=== PATIENT | male | born 1990 | race Caucasian/White ===

== ENCOUNTER 2023-06-26 20:17 | Emergency (ER) | payer OTHER ==
[~2023-06-26] VITALS: Ht 188 cm; Wt 108.9 kg
[2023-06-26 20:35] VITALS: BP 124/69; PULSE 79; RESP 17; TEMP 98.2; O2SAT 97
[2023-06-26 20:40] VITALS: BP 124/69; PULSE 79; RESP 17; TEMP 98.2; O2SAT 97
[2023-06-26 23:01] LABS: FLU A ANTIGEN negative (NEGATIVE); FLU B ANTIGEN NEGATIVE (NEGATIVE)
[2023-06-27] MEDS ORDERED: KETOROLAC 60 MG/2 ML VIAL IM ONE (02:00)
[2023-06-27] MEDS ORDERED: PRED20TA5 PO (02:33)
[2023-06-27] MEDS ORDERED: IBUP-2213 PO (02:33)
== END 2023-06-27 02:42 | disposition home or self-care (01) ==
LOC: MED 20:17
DX: J02.9 Acute pharyngitis, unspecified (principal); R05.9 Cough, unspecified; R50.9 Fever, unspecified; Z20.822 Contact with and (suspected) exposure to COVID-19
CPT/HCPCS: 87426; 87804; 96372; 99283; J1885

== ENCOUNTER 2023-08-06 12:53 | Emergency (ER) | payer OTHER ==
[~2023-08-06] VITALS: Ht 190.5 cm; Wt 90.7 kg
[~2023-08-06 12:53] MED LIST: IBUP-2213 PO; PRED20TA5 PO
[2023-08-06 13:05] VITALS: BP 139/72; PULSE 79; RESP 18; TEMP 97; O2SAT 98
[2023-08-06] MEDS ORDERED: HYDROcodone/APAP 10/325 MG 1 TAB TAB PO STA (13:57)
[2023-08-06] MEDS ORDERED: KETOROLAC 60 MG/2 ML VIAL IM ONE ×2 (14:00)
[2023-08-06] MEDS ORDERED: IBUP-2213 PO ×2 (14:54→15:07)
[2023-08-06] MEDS ORDERED: METH4TAB1 PO ×2 (14:54→15:07)
[2023-08-06] MEDS ORDERED: ACET-8905 PO ×2 (14:54→15:07)
[2023-08-06] MEDS ORDERED: LID5T TP ×2 (14:54→15:07)
[2023-08-06 14:56] VITALS: BP 139/72; PULSE 79; RESP 18; TEMP 97; O2SAT 98
== END 2023-08-06 14:56 | disposition home or self-care (01) ==
LOC: MED 12:53
DX: S39.012A Strain of muscle, fascia and tendon of lower back, initial encounter (principal); M54.16 Radiculopathy, lumbar region; Z79.899 Other long term (current) drug therapy; Z79.1 Long term (current) use of non-steroidal anti-inflammatories (NSAID); X58.XXXA Exposure to other specified factors, initial encounter; Y92.89 Other specified places as the place of occurrence of the external cause; Y93.89 Activity, other specified; Y99.8 Other external cause status
CPT/HCPCS: 96372; 99283; J1885